=== PATIENT | female | born 1965 | race Caucasian/White ===

== ENCOUNTER → 2018-01-13 15:44 | Outpatient (CLI) | payer OTHER, SELFPAY | DX: Z23 Encounter for immunization (principal) | CPT/HCPCS: 90471; 90686 ==

== ENCOUNTER → 2018-06-13 11:12 | Outpatient (CLI) | payer OTHER, SELFPAY ==
--- NOTE | 2018-06-13 | DI.MG.S_ITS ---
BILATERAL DIGITAL SCREENING MAMMOGRAM 3D/2D WITH CAD POST LUMPECTOMY: 06/13/2018 CLINICAL: Routine screening. Personal history of left breast cancer. Family history of breast cancer. Comparison is made to exams dated: 05/16/2017 mammogram, 05/10/2017 mammogram, 05/06/2017 mammogram - [facility], 05/02/2016 mammogram, 05/01/2016 mammogram, and 05/18/2010 mammogram - [facility]. The tissue of both breasts is heterogeneously dense. This may lower the sensitivity of mammography. Current study was also evaluated with a Computer Aided Detection (CAD) system. There are benign biopsy clips in the right breast. No significant masses, calcifications, or other findings are seen in either breast. There has been no significant interval change. IMPRESSION: NEGATIVE There is no mammographic evidence of malignancy. A 1 year screening mammogram is recommended. This exam was interpreted at Station ID: [id number]. NOTE: For mammograms, a report in lay terms will be sent to the patient. Approximately 15% of breast malignancies will not be visualized mammographically. In the management of a palpable breast mass, a negative mammogram must not discourage biopsy of a clinically suspicious lesion. Electronically Signed By: Hayley carrera/neida:06/13/2018 16:43:33 copy to: DONNA MARTELL letter sent: Normal Exam ACR BI-RADS Category 1: Negative 3341F
== END ==
PROVIDERS: PCP Nurse Practitioner Family; Visit Provider Nurse Practitioner Family
DX: Z12.31 Encounter for screening mammogram for malignant neoplasm of breast (principal); Z85.3 Personal history of malignant neoplasm of breast; Z80.3 Family history of malignant neoplasm of breast
CPT/HCPCS: 77063; 77067

== ENCOUNTER → 2019-03-03 15:31 | Outpatient (CLI) | payer OTHER, SELFPAY | PROVIDERS: PCP Nurse Practitioner Family | DX: Z23 Encounter for immunization (principal) | CPT/HCPCS: 90471; 90686 ==

== ENCOUNTER → 2019-06-16 13:38 | Outpatient (CLI) | payer OTHER, SELFPAY ==
--- NOTE | 2019-06-16 | DI.MG.S_ITS ---
BILATERAL DIGITAL SCREENING MAMMOGRAM 3D/2D WITH CAD POST LUMPECTOMY: 06/16/2019 CLINICAL: Routine screening. Personal history of left breast cancer. Comparison is made to exams dated: 06/13/2018 mammogram, 05/06/2017 mammogram - [facility], and 05/01/2016 mammogram - [facility]. The tissue of both breasts is heterogeneously dense. This may lower the sensitivity of mammography. Current study was also evaluated with a Computer Aided Detection (CAD) system. There are benign calcifications in the right breast. There also are biopsy clips in the right breast. No significant masses, calcifications, or other findings are seen in either breast. There has been no significant interval change. IMPRESSION: There is no mammographic evidence of malignancy. A 1 year screening mammogram is recommended. This exam was interpreted at Station ID: [id number]. NOTE: For mammograms, a report in lay terms will be sent to the patient. Approximately 15% of breast malignancies will not be visualized mammographically. In the management of a palpable breast mass, a negative mammogram must not discourage biopsy of a clinically suspicious lesion. Electronically Signed By: Ty [email or web address]/neida:06/16/2019 16:58:25 copy to: DONNA MARTELL letter sent: Normal Exam ACR BI-RADS Category 2: Benign Finding(s) 3342F
== END ==
PROVIDERS: PCP Nurse Practitioner Family; Referring Provider Nurse Practitioner Family; Visit Provider Nurse Practitioner Family
DX: Z12.31 Encounter for screening mammogram for malignant neoplasm of breast (principal); Z85.3 Personal history of malignant neoplasm of breast
CPT/HCPCS: 77063; 77067

== ENCOUNTER → 2020-02-23 19:39 | Outpatient (CLI) | payer OTHER, SELFPAY | PROVIDERS: PCP Nurse Practitioner Family; Referring Provider Internal Medicine; Visit Provider Internal Medicine | DX: Z23 Encounter for immunization (principal) | CPT/HCPCS: 90471; 90686 ==

== ENCOUNTER → 2020-04-07 09:46 | Outpatient (CLI) | payer OTHER, SELFPAY ==
[2020-04-07] MEDS: COVID-19 VACC(MODERNA-1)/PF 100 MCG/0.5 ML VIAL IM (09:54)
== END ==
PROVIDERS: PCP Nurse Practitioner Family; Visit Provider Internal Medicine
DX: Z23 Encounter for immunization (principal)
CPT/HCPCS: 0011A; 91301

== ENCOUNTER → 2020-05-03 14:56 | Outpatient (CLI) | payer OTHER, SELFPAY ==
[2020-05-03] MEDS: COVID-19 VACC #2, MRNA(MOD) 100 MCG/0.5 ML VIAL IM (15:03)
== END ==
PROVIDERS: PCP Nurse Practitioner Family; Visit Provider Internal Medicine
DX: Z23 Encounter for immunization (principal)
CPT/HCPCS: 0012A; 91301

== ENCOUNTER → 2022-02-09 13:49 | Outpatient (CLI) | payer OTHER, SELFPAY | PROVIDERS: PCP Nurse Practitioner Family; Referring Provider Internal Medicine; Visit Provider Internal Medicine | DX: Z23 Encounter for immunization (principal) | CPT/HCPCS: 90471; 90686 ==

== ENCOUNTER → 2023-01-31 11:27 | Outpatient (CLI) | payer OTHER, SELFPAY | PROVIDERS: PCP Nurse Practitioner Family; Referring Provider Family Medicine; Visit Provider Family Medicine | DX: Z23 Encounter for immunization (principal) | CPT/HCPCS: 90471; 90686 ==

== ENCOUNTER → 2024-01-27 | Outpatient (CLI) | payer OTHER, SELFPAY | PROVIDERS: PCP Nurse Practitioner Family; Referring Provider Internal Medicine; Visit Provider Internal Medicine | DX: Z23 Encounter for immunization (principal) | CPT/HCPCS: 90471; 90656 ==

== ENCOUNTER → 2024-03-02 19:13 | Outpatient (CLI) | payer OTHER, SELFPAY ==
--- NOTE | 2024-03-02 19:15 | DI.MRI.S_ITS ---
PROCEDURE: MR CERVICAL SPINE WO CON INDICATIONS: CERVICAL RADICULOPATHY/NECK PAIN TECHNIQUE: Noncontrast sagittal T1 spin echo and T2 fast spin echo, sagittal STIR, foraminal oblique sagittal T2 fast spin echo, and axial gradient echo or T2 fast spin echo through the cervical spine. COMPARISON: None. FINDINGS: Image quality: Excellent. Alignment and Curvature: Reversal of normal lordotic curve. Trace anterolisthesis of C3 on C4. Trace retrolisthesis of C4 on C5, C5 on C6, and C6 on C7. Trace anterolisthesis of C7 on T1. Bone Marrow: Marrow demonstrates normal overall signal. Spinal Cord: Visualized spinal cord has normal size and signal. There is a low T1 signal and mildly high T2 signal left epidural structure which is seen on sagittal T1 image 9 of series 2 and sagittal T2 image 9 of series 4. 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 It most likely represents a large acute disc fragment, extending from the lower C3 vertebral body level to the mid C4 vertebral body level. Also possible is schwannoma or meningioma. The lesion measures approximately 1.3 x 0.8 x 0.4 cm. It impinges on the left ventral cord and left lateral recess structures. No cerebellar tonsillar herniation. Paraspinous Soft Tissues: No paravertebral masses. Prevertebral soft tissues are normal in thickness. C2-C3: No canal stenosis or foraminal stenosis. Bilateral facet hypertrophy. C3-C4: There is an epidural lesion which is low T1 signal and mildly increased T2 signal in the left lateral recess extending from lower C3 level to mid C4 level. It most likely represents a herniated disc fragment, relatively acute. It measures 1.3 x 0.8 x 0.4 cm. It flattens the left ventral cord and obliterates the left C4 nerve in the left lateral recess. There is also moderate to severe stenosis at the level of the central canal. There is no signal abnormality in the cord. C4-C5: Severe disc height loss. Posterior disc post osteophyte. Indentation on the ventral cord. Moderate canal stenosis. Bilateral uncovertebral joint hypertrophy. Moderate to severe right foraminal narrowing with a degree of right foraminal C5 nerve root impingement. C5-C6: Severe chronic disc height loss. Diffuse posterior disc post osteophyte. Bilateral uncovertebral joint hypertrophy, prominent on the right. No significant canal stenosis. Moderate to severe right foraminal narrowing with a degree of right foraminal C6 nerve root impingement. Mild left foraminal narrowing. C6-C7: Chronic disc height loss. No canal stenosis. Bilateral uncovertebral joint hypertrophy, prominent on the right. Moderate to severe right foraminal narrowing with a degree of right foraminal C7 nerve root impingement. C7-T1: No canal stenosis or foraminal stenosis. IMPRESSION: 1. There is a large space-occupying lesion in the left lateral recess from lower C3 to mid C4 which most likely represents a relatively acute disc fragment. Differential includes schwannoma and meningioma. At the level of C3-C4, there is moderate to severe stenosis of the central canal, severe impingement on the left ventral cord, and obliteration of the left C4 nerve root in the left lateral recess. 2. Diffuse cervical spondylitic change. 3. There is moderate canal stenosis at C4-C5. 4. Multilevel foraminal narrowing as described above with multilevel right-sided nerve root impingement, at C4-C5, C5-C6, and C6-C7. Comment: Recommend cervical spine MRI with and without contrast for further characterization of the epidural lesion centered at C3-C4. Dictated by: Pernell Plata M.D. on 03/03/2024 at 8:50 Approved by: Pernell Plata M.D. on 03/03/2024 at 9:06
== END ==
PROVIDERS: PCP Nurse Practitioner Family; Referring Provider Nurse Practitioner Family; Visit Provider Nurse Practitioner Family
DX: M47.22 Other spondylosis with radiculopathy, cervical region (principal); M48.8X2 Other specified spondylopathies, cervical region; M48.02 Spinal stenosis, cervical region; M54.2 Cervicalgia
CPT/HCPCS: 72141

== ENCOUNTER → 2024-03-09 13:19 | Outpatient (CLI) | payer OTHER, SELFPAY ==
--- NOTE | 2024-03-09 13:21 | DI.MRI.S_ITS ---
PROCEDURE: MR CERVICAL SPINE W CON INDICATIONS: cervical radiculopathy-Abnormal MRI TECHNIQUE: Contrast enhanced images were recently performed and not repeated on this study. After the administration of contrast, axial and sagittal T1 spin echo with fat saturation through the cervical spine. COMPARISON: [facility], CR, XR CERVICAL SPINE 2 OR 3 VIEWS, 01/07/2024, 16:45. [facility], MR, MR CERVICAL SPINE WO CON, 03/02/2024, 19:17. FINDINGS: Image quality: Excellent. Alignment and curvature: Reversal of the normal cervical lordosis is seen, with the apex at the C3-C4 level. No focal AP alignment abnormality is seen. Marrow: Marrow is normal in overall signal, without suspicious enhancement. Spinal cord: Visualized spinal cord has normal size and signal. No cerebellar tonsillar herniation. No abnormal intramedullary enhancement. Paraspinous soft tissues: No paravertebral masses or suspicious enhancement. At the C3-C4 level, there is abnormal soft tissue material seen within the central/left region. The central portion of this does not enhance and is attributed to extruded disc material. Surrounding inflammatory change is seen. Moderate to severe central canal narrowing is seen at this level, with mass effect upon the ventral spinal cord. IMPRESSION: These imaging findings are most compatible with extruded disc material on the left at the C3-C4 level. Surrounding inflammatory changes are seen. Dictated by: Say Cash M.D. on 03/09/2024 at 13:52 Approved by: Say Cash M.D. on 03/09/2024 at 13:54
== END ==
PROVIDERS: PCP Nurse Practitioner Family; Referring Provider Nurse Practitioner Family; Visit Provider Nurse Practitioner Family
DX: M54.12 Radiculopathy, cervical region (principal); M54.2 Cervicalgia; R93.7 Abnormal findings on diagnostic imaging of other parts of musculoskeletal system
CPT/HCPCS: 72142; A9579